=== PATIENT | female | born 1990 | race African-American/Black ===

== ENCOUNTER 2017-12-15 09:36 | Emergency (ER) | payer OTHER ==
--- NOTE | 2017-12-15 09:51 | ED ---
- HPI Summary HPI Summary: Patient is a 27 y/o F presenting to ED for a blood test. She states she took a urine test yesterday which returned positive and she wants to confirm results. LNMP was November 13. She notes that she has been nauseous and experiencing body aches. Patient states she is not nauseous in the room. Patient is A4. She states that present Sx are similar to when she was previously. She denies abdominal pain, vaginal bleeding or discharge, breast tenderness or swelling. PMHx of scoliosis, patient is not on a pre- vitamin and does not have OBGYN as she is new to [place]. Patient states she does not take any home medications. On triage, pain is denied. Nothing is noted to aggravate/alleviate Sx. Allergies are reviewed. - History of Current Complaint Chief Complaint: EDOBProblems Stated Complaint: REQUESTING PREG TEST Time Seen by Provider: 12/15/17 09:42 Hx Obtained From: Patient Onset/Duration: Started Days Ago - urine test yesterday, Still Present - request test, Resolved - nausea Timing: Constant, Lasting Days - urine test yesterday Current Severity: None - pain denied Pain Intensity: 0 Location of Pain: None Character: None Aggravating Factors: Nothing Alleviating Factors: Nothing Associated Signs and Symptoms: Positive: Nausea - not present in room, Other: - body aches, no breast swelling or tenderness. Negative: Vaginal Bleeding or Discharge - Allergies/Home Medications Allergies/Adverse Reactions: Allergies Allergy/AdvReac Type Severity Reaction Status Date / Time No Known Allergies Allergy Verified 12/15/17 09:56 PMH/Surg Hx/FS Hx/Imm Hx Musculoskeletal History: Reports: Hx Scoliosis Sensory History: Denies: Hx Legally Blind Opthamlomology History: Denies: Hx Legally Blind Infectious Disease History: No Infectious Disease History: Denies: Traveled Outside the [place] in Last 30 Days - Family History Known Family History: Negative: Blood Disorder - Social History Alcohol Use: None Substance Use Type: Reports: Marijuana Smoking Status (MU): Current Every Day Smoker Review of Systems Positive: Other - body aches Positive: Nausea - not present in the room . Negative: Abdominal Pain Positive: other - NEGATIVE: vaginal bleeding or discharge Positive: Other - NEGATIVE: breast tenderness, breast swelling All Other Systems Reviewed And Are Negative: Yes Physical Exam - Summary Physical Exam Summary: Appearance: Well appearing, no pain distress; early signs of Skin: warm, dry, reflects adequate perfusion Head/face: normal Eyes: EOMI, LONA ENT: mucous membranes moist Neck: supple, non-tender Respiratory: CTA, breath sounds present Cardiovascular: RRR, pulses symmetrical Abdomen: non-tender, soft Bowel Sounds: present Musculoskeletal: normal, strength/ROM intact Neuro: normal, sensory motor intact, A&Ox3 - Physical Exam Triage Information Reviewed: Yes Vital Signs On Initial Exam: Initial Vitals Temp Pulse Resp BP Pulse Ox 98.2 F 94 16 116/71 99 12/15/17 09:38 12/15/17 09:38 12/15/17 09:38 12/15/17 09:38 12/15/17 09:38 Vital Signs Reviewed: Yes Diagnostics - Vital Signs Vital Signs Temp Pulse Resp BP Pulse Ox 12/15/17 09:38 98.2 F 94 16 116/71 99 - Laboratory Lab Statement: Any lab studies that have been ordered have been reviewed, and results considered in the medical decision making process. Course/Dx - Course Course Of Treatment: +HCG by blood here. No pain or bleeding. F/U OBGYN - Diagnoses Provider Diagnoses: Discharge - Sign-Out/Discharge Documenting (check all that apply): Patient Departure - discharge - Discharge Plan Condition: Improved Disposition: HOME Prescriptions: Pnv No.95/Ferrous Fum/Folic AC [ Vitamin Tablet] 1 each PO DAILY #30 tablet Patient Education Materials: (ED) Referrals: [facility] [Provider Group] No Primary Care Phys,[facility] [Primary Care Provider] - Additional Instructions: Call today to schedule appointment for follow-up with [facility]. Do not smoke. Take a vitamin every day. Return if bleeding, uncontrolled pain, worse , new symptoms or other concerns. - Billing Disposition and Condition Condition: IMPROVED Disposition: Home - Attestation Statements Document Initiated by Scribe: Yes Documenting Scribe: Brennan Milner Provider For Whom Scribe is Documenting (Include Credential): Dimitris Alfaro MD Scribe Attestation: Brennan Bender , scribed for Dimitris Alfaro MD on 12/15/17 at 1155. Scribe Documentation Reviewed: Yes Provider Attestation: The documentation as recorded by the scribeBrennan accurately reflects the service I personally performed and the decisions made by me, Dimitris Alfaro MD
[2017-12-15 10:32] VITALS: BP 118/80
== END 2017-12-15 10:31 | disposition home or self-care (01) ==
LOC: ED 09:36
DX: Z32.01 Encounter for pregnancy test, result positive (principal); R11.0 Nausea; M79.10 Myalgia, unspecified site; F17.200 Nicotine dependence, unspecified, uncomplicated
CPT/HCPCS: 36415; 84702; 99282

== ENCOUNTER 2018-03-28 09:29 | Emergency (ER) | payer OTHER ==
--- NOTE | 2018-03-28 10:31 | ED ---
Abdominal Pain/Female - HPI Summary HPI Summary: Pt is a 27 y/o female who presents to the ED c/o abdominal pain. She began to have intermittent lower abdominal pain and lower back pain two days ago. Last night at 17:00 the pain became worse. Pt also c/o N/V and constipation. She denies any fever, vaginal fluid leakage, vaginal bleeding, diarrhea, or urinary symptoms. Pain is rated an 8/10 in severity. She denies any injury. LNMP was 11/13/17, and her due date is 08/20/18. Pt is currently about 19 weeks . She denies taking any OTC medications for her pain. Pt has an appointment with her TECHNICAL SALES DIRECTOR scheduled for tomorrow. She is accompanied by her partner. Pt denies any hx of appendectomy. - History of Current Complaint Chief Complaint: EDAbdPain Stated Complaint: 4 MONTHS PREG SHARP PAIN Time Seen by Provider: 03/28/18 10:29 Hx Obtained From: Patient Hx Last Menstrual Period: 11/13/17 Onset/Duration: Gradual Onset, Lasting Days - 2, Worse Since Timing: Intermittent Episode Lasting Severity Currently: Severe Pain Intensity: 8 Pain Scale Used: 0-10 Numeric Location: Other - Lower abdomen Radiates: Yes Radiates to: Back - lower back Aggravating Factor(s): Nothing Alleviating Factor(s): Nothing Associated Signs and Symptoms: Positive: Back Pain, Constipation, Nausea, Vomiting. Negative: Fever, Urinary Symptoms, Vaginal Bleeding, Vaginal Discharge Allergies/Adverse Reactions: Allergies Allergy/AdvReac Type Severity Reaction Status Date / Time No Known Allergies Allergy Verified 03/28/18 10:50 PMH/Surg Hx/FS Hx/Imm Hx Musculoskeletal History: Reports: Hx Scoliosis Sensory History: Denies: Hx Legally Blind Opthamlomology History: Denies: Hx Legally Blind Infectious Disease History: No Infectious Disease History: Denies: Traveled Outside the [place] in Last 30 Days - Family History Known Family History: Negative: Blood Disorder - Social History Alcohol Use: None Hx Substance Use: Yes Substance Use Type: Reports: Marijuana Hx Tobacco Use: No Smoking Status (MU): Never Smoked Tobacco Review of Systems Negative: Fever Positive: Abdominal Pain, Vomiting, Nausea, Other - constipation. Negative: Diarrhea Genitourinary: Negative Negative: other - vaginal bleeding All Other Systems Reviewed And Are Negative: Yes Physical Exam - Summary Physical Exam Summary: Appearance: Well appearing, no pain distress Skin: warm, dry, reflects adequate perfusion Head/face: normal Eyes: EOMI, LONA ENT: mucous membranes moist Neck: supple, non-tender Respiratory: CTA, breath sounds present Cardiovascular: RRR, pulses symmetrical Abdomen: soft, gravid, palpable about the level of the umbilicus, diffuse suprapubic, bilateral pelvic, and RLQ tenderness Bowel Sounds: present Musculoskeletal: strength/ROM intact, scoliosis of spine, bilateral lumbar muscular tenderness, normal gait without pain Neuro: normal, sensory motor intact, A&Ox3 Triage Information Reviewed: Yes Vital Signs On Initial Exam: Initial Vitals Temp Pulse Resp BP Pulse Ox 97.5 F 68 16 118/70 100 03/28/18 09:41 03/28/18 09:41 03/28/18 09:41 03/28/18 09:41 03/28/18 09:41 Vital Signs Reviewed: Yes Diagnostics - Vital Signs Vital Signs Temp Pulse Resp BP Pulse Ox 03/28/18 09:41 97.5 F 68 16 118/70 100 - Laboratory Result Diagrams: 03/28/18 11:09 03/28/18 11:09 Lab Statement: Any lab studies that have been ordered have been reviewed, and results considered in the medical decision making process. - Ultrasound No standard instances Ultrasound Interpretation Completed By: Radiologist Summary of Ultrasound Findings: US: The appendix is not visualized limiting assessment for appendicitis. No secondary inflammatory findings visualized at the RIGHT lower quadrant. Lucero intrauterine gestation in variable presentation with estimated gestational age based on this exam of 19 weeks 5 days. ED physician reviewed radiology report. Re-Evaluation - Re-Evaluation First Eval Re-Evaluation Time: 12:00 Change: Improved Comment: Pain has improved after muscle relaxer. Abdominal Pain Fem Course/Dx - Course Course Of Treatment: Nurse's notes reviewed. Patient is approximately 20 weeks with low abdominal discomfort and back pain. She has a history of scoliosis. Ultrasound indicates a well-appearing fetus without abruption. The patient walks and moves freely without any peritonitis. Her CRP and WBC are nonelevated. There is no UTI. She felt much better after muscle relaxation and was discharged in good condition. - Diagnoses Differential Diagnosis: Positive: Appendicitis, Bowel Obstruction, Constipation , Ovarian Cyst, , Renal Colic, Urinary Tract Infection Provider Diagnoses: Back pain, History of scoliosis, Abdominal pain during Discharge - Sign-Out/Discharge Documenting (check all that apply): Patient Departure - Discharge Patient Received Moderate/Deep Sedation with Procedure: No - Discharge Plan Condition: Stable Disposition: HOME Prescriptions: Cyclobenzaprine (NF) [Cyclobenzaprine 5 MG (NF)] 5 mg PO TID PRN #15 tab PRN Reason: muscular pain Patient Education Materials: Abdominal Pain in (ED), Back Pain (ED) Referrals: Beatrice Dias CNM [Primary Care Provider] - Additional Instructions: Tylenol as needed for discomfort. You may not take ibuprofen. Muscle relaxer as needed. Do not drive while taking. Call your TECHNICAL SALES DIRECTOR today to schedule prompt follow-up. Return with fever, increased pain, especially in the right lower quadrant of the abdomen, worse, new symptoms or other concerns as discussed. - Billing Disposition and Condition Condition: STABLE Disposition: Home - Attestation Statements Document Initiated by Sandrae: Yes Documenting Scribe: Tigist Medina Provider For Whom Sandrae is Documenting (Include Credential): Dimitris Alfaro MD Scribe Attestation: Tigist Bender, scribed for Dimitris Alfaro MD on 03/28/18 at 1351. Scribe Documentation Reviewed: Yes Provider Attestation: The documentation as recorded by the Tigist menon accurately reflects the service I personally performed and the decisions made by , Dimitris Alfaro MD Status of Scribe Document: Viewed
[2018-03-28] MEDS ORDERED: Acetaminophen TAB* 325 MG PO ONE (10:39)
[2018-03-28] MEDS ORDERED: Cyclobenzaprine TAB* 10 MG PO ONE (10:39)
[2018-03-28 11:14] LABS: ABS Basophils 0 10^3/ul (0-0.2); ABS Eosinophils 0 10^3/ul (0-0.6); ABS Lymphocytes 1.2 10^3/ul (1.0-4.8); ABS Monocytes 0.5 10^3/ul (0-0.8); ABS Nucleated RBC 0 10^3/ul; Eosinophil % 0.3 %; Hematocrit 35 % (35-47); Hemoglobin 11.9 g/dl (12.0-16.0); Lymphocyte % 25.8 %; Mean Corpuscular HGB Conc 34 g/dl (31-36); Mean Corpuscular Hemoglobin 31 pg (27-31); Mean Corpuscular Volume 93 fL (80-97); Mean Platelet Volume 10.3 fL (7.4-10.4); Nucleated Red Blood Cells % 0.1; Platelet Count 158 10^3/ul (150-450); Red Blood Count 3.81 10^6/ul (4.00-5.40); Red Cell Distribution Width 14 % (10.5-15); White Blood Count 4.8 10^3/ul (3.5-10.8)
[2018-03-28 11:35] LABS: Albumin 3.7 g/dL (3.2-5.2); Albumin/Globulin Ratio 1.3 (1-3); BUN/Creatinine Ratio 11.1 (8-20); C Reactive Protein 5.82 mg/L (<8.01); Calcium 8.3 mg/dL (8.6-10.3); EGFR African American 163.9 (>60); EGFR Non-African American 135.4 (>60); Globulin 2.8 g/dL (2-4); Potassium 3.6 mmol/L (3.5-5.0); Total Bilirubin 0.4 mg/dL (0.2-1.0); Total Protein 6.5 g/dL (6.4-8.9)
[2018-03-28 12:35] LABS: Urine Appearance Cloudy; Urine Bilirubin Negative (Negative); Urine Blood Negative (Negative); Urine Color Yellow; Urine Glucose Negative (Negative); Urine Ketones 1+ (Negative); Urine Nitrite Negative (Negative); Urine Protein Negative (Negative); Urine Specific Gravity 1.018 (1.010-1.030); Urine Urobilinogen Positive (Negative)
[2018-03-28 13:10] VITALS: BP 123/71
== END 2018-03-28 13:09 | disposition home or self-care (01) ==
LOC: ED 09:29
DX: O21.0 Mild hyperemesis gravidarum (principal); R10.30 Lower abdominal pain, unspecified; M54.5 Low back pain; M41.9 Scoliosis, unspecified; K59.00 Constipation, unspecified; Z3A.20 20 weeks gestation of pregnancy
CPT/HCPCS: 36415; 76815; 80053; 81003; 85025; 86140; 99282; A9270-GY

== ENCOUNTER 2018-04-28 17:15 | Emergency (ER) | payer OTHER ==
--- NOTE | 2018-04-28 17:35 | ED ---
Influenza-Like Illness - HPI Summary HPI Summary: This patient is a 28 year old F presenting to [facility] accompanied by friend with a chief complaint of chills that began yesterday. The patient rates the pain 10/ 10 in severity. Symptoms aggravated by nothing. Symptoms alleviated by nothing. Patient reports cough, myalgia, sore throat, nasal discharge, and vomiting. Patient states she is 6 months . - History of Current Complaint Chief Complaint: EDFluSymptoms Hx Obtained From: Patient Onset/Duration: Sudden Onset, Lasting Days, Still Present Severity: Severe Associated Signs & Symptoms: Myalgia, Cough, Sore Throat, Nasal Congestion, Vomiting - Allergy/Home Medications Allergies/Adverse Reactions: Allergies Allergy/AdvReac Type Severity Reaction Status Date / Time No Known Allergies Allergy Verified 03/28/18 10:50 PMH/Surg Hx/FS Hx/Imm Hx Previously Healthy: Yes Musculoskeletal History: Reports: Hx Scoliosis Sensory History: Denies: Hx Legally Blind Opthamlomology History: Denies: Hx Legally Blind Infectious Disease History: No Infectious Disease History: Denies: Traveled Outside the [place] in Last 30 Days - Family History Known Family History: Positive: Diabetes, Other - Lupus and CA. Negative: Blood Disorder - Social History Occupation: Unemployed Lives: With Family Alcohol Use: None Hx Substance Use: Yes Substance Use Type: Reports: Marijuana Hx Tobacco Use: No Smoking Status (MU): Never Smoked Tobacco Review of Systems Positive: Chills Positive: Sore Throat, Nasal Discharge Positive: Cough Positive: Vomiting Positive: Myalgia All Other Systems Reviewed And Are Negative: Yes Physical Exam - Summary Physical Exam Summary: Appearance: Well appearing, no pain distress Skin: warm, dry, reflects adequate perfusion Head/face: normal Eyes: EOMI, LONA ENT: mucous membranes moist. Inflamed nasal mucosa. Clear nasal discharge. Neck: supple, non-tender Respiratory: CTA, breath sounds present Cardiovascular: RRR, pulses symmetrical Abdomen: non-tender, soft. Fundus is palpable just below the umbilicus. Bowel Sounds: present Musculoskeletal: normal, strength/ROM intact Neuro: normal, sensory motor intact, A&Ox3 Triage Information Reviewed: Yes Vital Signs On Initial Exam: Initial Vitals Temp Pulse Resp BP Pulse Ox 98.5 F 99 20 103/67 100 04/28/18 17:17 04/28/18 17:17 04/28/18 17:17 04/28/18 17:17 04/28/18 17:17 Vital Signs Reviewed: Yes Diagnostics - Vital Signs Vital Signs Temp Pulse Resp BP Pulse Ox 04/28/18 17:17 98.5 F 99 20 103/67 100 - Laboratory Lab Statement: Any lab studies that have been ordered have been reviewed, and results considered in the medical decision making process. Flu Symptom Course/Dx - Course Course Of Treatment: Nurse's notes reviewed. Patient with abrupt onset of cough and cold symptoms testing positive for influenza A. She is well within the treatment window for Tamiflu which is prescribed. category C. No dyspnea or hypoxia. Tylenol given here. Bedside ultrasound of the fetus shows an active fetus with heart tones present. Measures appropriately at 24 weeks and 2 days by BPD. - Diagnoses Differential Diagnosis/HQI/PQRI: Positive: Influenza, Pneumonia, Upper Respiratory Infection Provider Diagnoses: Second trimester , Influenza A Discharge - Sign-Out/Discharge Documenting (check all that apply): Patient Departure - Discharge home Patient Received Moderate/Deep Sedation with Procedure: No - Discharge Plan Condition: Improved Disposition: HOME Prescriptions: guaiFENesin [Mucinex] 600 mg PO BID #20 tab.er.12h Oseltamivir CAP* [Tamiflu CAP*] 75 mg PO BID #10 cap Patient Education Materials: Influenza (ED) Forms: *Work Release Referrals: Beatrice Dias CNM [Primary Care Provider] - Additional Instructions: Return with difficulty breathing, high fevers, worse, new symptoms or other concerns. Drink plenty of fluids. Vitamin C may help. Humidifier while sleeping. All medications are safe for . Call on Monday to follow-up with her MANAGER INTEGRATED and your family doctor. Tylenol can be taken for body aches or fever. Do not take ibuprofen. - Billing Disposition and Condition Condition: IMPROVED Disposition: Home - Attestation Statements Document Initiated by Scribe: Yes Documenting Scribe: Lida Hart Provider For Whom Agustin is Documenting (Include Credential): Dr. Dimitris Alfaro MD Scribe Attestation: Ldia Bender, scribed for Dr. Dimitris Alfaro MD on 04/28/18 at 1806. Scribe Documentation Reviewed: Yes Provider Attestation: The documentation as recorded by the Lida menon accurately reflects the service I personally performed and the decisions made by me, Dr. Dimitris Alfaro MD Status of Scribe Document: Viewed
[2018-04-28 17:52] LABS: Influenza A Molecular POSITIVE (Negative)
[2018-04-28] MEDS ORDERED: Acetaminophen TAB* 325 MG PO ONE (18:02)
[2018-04-28 18:14] LABS: Urine Appearance Cloudy; Urine Bilirubin Negative (Negative); Urine Blood Negative (Negative); Urine Color Yellow; Urine Glucose Negative (Negative); Urine Ketones 2+ (Negative); Urine Nitrite Negative (Negative); Urine Protein Negative (Negative); Urine Specific Gravity 1.016 (1.010-1.030); Urine Urobilinogen Positive (Negative)
[2018-04-28 18:30] VITALS: BP 132/71
== END 2018-04-28 18:30 | disposition home or self-care (01) ==
LOC: ED 17:15
DX: O26.892 Other specified pregnancy related conditions, second trimester (principal); J10.1 Influenza due to other identified influenza virus with other respiratory manifestations; Z3A.24 24 weeks gestation of pregnancy
CPT/HCPCS: 81003; 99283; A9270-GY

== ENCOUNTER 2018-08-14 05:13 | Inpatient (IN) | payer OTHER ==
[2018-08-14] MEDS ORDERED: Lactated Ringers 1000 ML Bag* 1,000 ML IV ONE ×2 (05:44→08:48)
[2018-08-14] MEDS ORDERED: Buffered Lidocaine 1% SYRIN* 1 ML/SYRINGE INTRADERM ONE (05:44)
[2018-08-14] MEDS ORDERED: Lactated Ringers 1000 ML Bag* 1,000 ML IV SCH ×3 (06:00→14:00)
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
--- NOTE | 2018-08-14 06:23 | PN ---
Progress Note - Progress Note Date of Service: 08/14/18 Note: Pt requests pain relief. Discussed options with her including non- pharmacological methods such as hydrotherapy, position changes, IV/ IM medications, nitrous oxide, and epidural. Pt reports hx epidurals with previous births, second one "didn't work," would prefer to avoid for now. Would like to try nitrous oxide. Discussed risks, benefits, use of mask. FHR Category I. Partner at bedside.
[2018-08-14 08:04] LABS: Hematocrit 36 % (35-47); Mean Corpuscular HGB Conc 36 g/dL (31-36); Mean Corpuscular Hemoglobin 33 pg (27-31); Mean Corpuscular Volume 91 fL (80-97); Red Blood Count 3.97 10^6 /uL (3.70-4.87); Red Cell Distribution Width 14 % (10-15); White Blood Count 9.9 10^3/uL (3.5-10.8)
--- NOTE | 2018-08-14 08:04 | PN ---
Progress Note - Progress Note Date of Service: 08/14/18 SOAP: Subjective: Pt more uncomfortable. Nitrous was working well for a bit, but is now more uncomfortable and requests epidural. Objective: FHR baseline 120, moderate variability, + accels, occasional early decels UCs Q 2-3 minutes, moderate strength Cervical exam deferred Assessment: Pt appears to be progressing in active labor. No evidence of acidemia. Membranes intact. Plan: Epidural for pain relief. Anticipate .
[2018-08-14 08:05] LABS: ABS Lymphocytes 2.2 10^3/ul (1.0-4.8); ABS Monocytes 1.1 10^3/ul (0-0.8); ABS Neutrophils 6.5 10^3/ul (1.5-7.7); Eosinophil % 0.3 %; Lymphocyte % 22.1 %
[2018-08-14] MEDS ORDERED: Bupivacaine 0.25% SDV PF* 10 ML VIAL INJ ONE (08:14)
[2018-08-14] MEDS ORDERED: OBEPIDURAL* 250 ML EPIDURAL ONE (08:15)
[2018-08-14 08:28] LABS: Mean Platelet Volume 12.3 fL (7.4-10.4); Platelet Count 138 10^3/uL (150-450)
[2018-08-14] MEDS ORDERED: Lidocaine 1% w EPI 1:200,000* 30 ML VIAL ONE (08:31)
[2018-08-14 08:35] LABS: Urine Benzodiazepine Screen None Detected (None Detect); Urine Opiates Screen None Detected (None Detect)
[2018-08-14] MEDS ORDERED: Phenylephrine 40 MCG/ML SYRINGE IV PUSH PRN ×2 (08:48)
[2018-08-14] MEDS ORDERED: Sodium Citrate/Citric Acid* 15 ML UDC PO PRN (08:48)
[2018-08-14] MEDS ORDERED: Famotidine TAB* 20 MG PO PRN (08:48)
[2018-08-14] MEDS ORDERED: EPHEDrine (Pressors)* 50 MG/ML VIAL IV PUSH PRN ×2 (08:48)
[2018-08-14] MEDS ORDERED: OBEPIDURAL* 250 ML EPIDURAL SCH (09:00)
--- NOTE | 2018-08-14 11:05 | PN ---
Progress Note - Progress Note Date of Service: 08/14/18 Note: S: Pt resting comfortably after epidural placement O: BP 115/67 HR 69 FHT 120bpm. Minimal to moderate variability. +Accels. Occ early type decels UCs q 2-4 VE: 6cm/100%/vtx 0, BBOW A: IUP at 39-1/7 in labor Cat II FHT, doubt metabolic acidemia P: Close monitoring of maternal/ status. Anticipate normal progression in labor.
[2018-08-14] MEDS ORDERED: Acetaminophen TAB* 325 MG PO PRN (13:23)
[2018-08-14] MEDS ORDERED: Dibucaine 1% 28.35 GM TUBE PR PRN (13:23)
[2018-08-14] MEDS ORDERED: Glycerin ADULT SUPP PR PRN (13:23)
[2018-08-14] MEDS ORDERED: Witch Hazel PAD* JAR TOPICAL PRN (13:23)
--- NOTE | 2018-08-14 13:34 | PROCNOTE ---
[facility] OB: Delivery Note - Delivery A Date of : 08/14/18 Time of : 13:04 [place] Sex: Male - "Juanito" Score 1 Minute: 9 Score 5 Minutes: 9 Gestational Age in Weeks and Days at Delivery: 39 Weeks and 1 Days Delivery Method: Spontaneous Vaginal Labor: Spontaneous Did Patient attempt ?: N/A, No Previous Amniotic Fluid: Clear Estimated Blood Loss: 400 Anesthesia/Analgesia: CEI for Labor - placed by Dr. Velasquez, Nitrous-Labor Delivered By: [place]o [place] - Nursery Level of Nursery: Regular/Bedside - Perineum Perineal Injury: None/Intact Perineal Repair: None - Additional Delivery Notes Additional Delivery Notes: Patient admitted at term in labor. Received epidural per preference with excellent relief. Expected progression to complete. Amniotomy to clear fluid at anterior lip followed by spontaneous pushing effort. Pushed x 11 min. liveborn male. Slow, controlled delivery of head. Direct OA. Transverse shoulders delivered in [place] with stron maternal push. [place] vigorous with spontaneous cry. HR>110bpm. Delivered to maternal abdomen. Cord clamped x 2 and cut by FOB when puslations ceased. Spontaneous delivery intact placenta. Membranes complete. Fundus slow to firm to massage, brisk bleeding noted. IV pitocin initiated. Fundus firmed to massage and remained firm. Perineum intact. No repair needed as above. EBL 400mL. At time of note mother and in stable condition. Planning to both breast and bottle feed per preference.
[2018-08-14] MEDS ORDERED: Oxytocin in LR* 20 UNITS/1,000 ML BAG IVPB SCH (14:00)
[2018-08-14] MEDS ORDERED: OXYTOCIN* 10 UNITS/ML 1 ML VIAL ONE (14:09)
[2018-08-14] MEDS: Ibuprofen TAB* 600 MG PO PRN ×2 (14:10→20:16)
[2018-08-14] MEDS: Docusate CAP* 100 MG PO SCH ×2 (15:32→21:47)
[2018-08-14] MEDS ORDERED: Simethicone TAB* 80 MG TAB.CHEW PO SCH (17:30)
[2018-08-15] MEDS: Ibuprofen TAB* 600 MG PO PRN ×3 (02:17→14:33)
[2018-08-15 06:18] LABS: ABS Lymphocytes 2.2 10^3/ul (1.0-4.8); ABS Monocytes 1.2 10^3/ul (0-0.8); ABS Neutrophils 7.7 10^3/ul (1.5-7.7); Eosinophil % 0.1 %; Hematocrit 32 % (35-47); Hemoglobin 10.9 g/dL (12.0-16.0); Lymphocyte % 19.9 %; Mean Corpuscular HGB Conc 34 g/dL (31-36); Mean Corpuscular Hemoglobin 31 pg (27-31); Mean Corpuscular Volume 92 fL (80-97); Mean Platelet Volume 11.3 fL (7.4-10.4); Platelet Count 104 10^3/uL (150-450); Red Blood Count 3.47 10^6 /uL (3.70-4.87); Red Cell Distribution Width 14 % (10-15); White Blood Count 11.2 10^3/uL (3.5-10.8)
[2018-08-15] MEDS: Docusate CAP* 100 MG PO SCH ×3 (08:47→21:18)
[2018-08-15] MEDS ORDERED: Ferrous Gluconate TAB* 324 MG TAB PO SCH (09:00)
[2018-08-16] MEDS: Docusate CAP* 100 MG PO SCH (07:52)
[2018-08-16] MEDS: Ibuprofen TAB* 600 MG PO PRN (07:53)
[2018-08-16 08:01] VITALS: BP 113/71
== END 2018-08-16 10:10 | disposition home or self-care (01) | DRG 560 ==
LOC: MCHOBOUT 05:13 → MCHOB 05:43
PROVIDERS: ADMIT Midwife; ATTEND Midwife
PROC: 10E0XZZ Delivery of Products of Conception, External Approach (ICD-10-PCS; principal; 2018-08-14)
PROC: 4A1HXCZ Monitoring of Products of Conception, Cardiac Rate, External Approach (ICD-10-PCS; 2018-08-14)
PROC: 10907ZC Drainage of Amniotic Fluid, Therapeutic from Products of Conception, Via Natural or Artificial Opening (ICD-10-PCS; 2018-08-14)
DX: O76 Abnormality in fetal heart rate and rhythm complicating labor and delivery (principal); Z37.0 Single live birth; Z3A.39 39 weeks gestation of pregnancy; Z91.040 Latex allergy status
CPT/HCPCS: 36415; 80307; 85025; 86850; 86900; 86901; A9270-GY; J2001; J2590; J3490

== ENCOUNTER 2019-01-15 15:39 | Emergency (ER) | payer OTHER ==
--- NOTE | 2019-01-15 17:41 | UC ---
Complaint Female HPI - HPI Summary HPI Summary: 28 yo [id number] with one week hx of vaginal odor without itching. She has a hx of bacterial vaginosis with frequent recurrences, and her symptoms are most consistent with that. She has onset of low back pain x 2 days without urinary frequency, dysuria or gross hematuria. LMP late November, positive home test yesterday. She had tx of gonorrhea 8 years but no other STI's. Her partner has herpes, but she has not had an outbreak, and reports being treated with antiviral around the time of her last delivery. Unplanned , has not been using contraception, and is uncertain of plan for at this point in time. - History Of Current Complaint Chief Complaint: [facility] Stated Complaint: PERSONAL ISSUE Time Seen by Provider: 01/15/19 17:34 Hx Obtained From: Patient Hx Last Menstrual Period: end of november Onset/Duration: Gradual Onset Timing: Constant Pain Intensity: 8 Character: Cramping Aggravating Factor(s): Movement - worsens back pain Alleviating Factor(s): Nothing Associated Signs And Symptoms: Positive: Back Pain, Vaginal Discharge - Risk Factors Ovarian Torsion Risk Factor: Reproductive Age - Allergies/Home Medications Allergies/Adverse Reactions: Allergies Allergy/AdvReac Type Severity Reaction Status Date / Time Latex, Natural Rubber Allergy Mild Itching Verified 01/15/19 16:04 PMH/Surg Hx/FS Hx/Imm Hx - Additional Past Medical History Additional PMH: Scoliosis Previously Healthy: Yes - Surgical History Surgical History: None - Family History Known Family History: Positive: Diabetes, Other - Lupus and CA. Negative: Blood Disorder - Social History Occupation: Employed Full-time Lives: With Family Alcohol Use: None Substance Use Type: Marijuana Substance Use Comment - Amount & Last Used: states not anymore but before 2x/day per pt - positive test Smoking Status (MU): Never Smoked Tobacco - Immunization History Most Recent Influenza Vaccination: N/A Most Recent Pneumonia Vaccination: N/A Review of Systems All Other Systems Reviewed And Are Negative: Yes Constitutional: Positive: Negative Skin: Positive: Negative Eyes: Positive: Negative ENT: Positive: Sore Throat - resolving--had URI last week., Nasal Discharge Respiratory: Positive: Negative Cardiovascular: Positive: Negative Gastrointestinal: Positive: Negative Genitourinary: Positive: Vaginal/Penile Discharge. Negative: Dysuria, Frequency , Urgency Motor: Positive: Other - chronic low back pain related to scoliosis Neurovascular: Positive: Negative Musculoskeletal: Positive: Arthralgia Neurological: Positive: Negative Psychological: Positive: Negative Is Patient Immunocompromised?: No Physical Exam Triage Information Reviewed: Yes Appearance: Well-Appearing, Pain Distress - mild Vital Signs: Initial Vital Signs Temp 97.6 F 01/15/19 16:00 Pulse 72 01/15/19 16:00 Resp 18 01/15/19 16:00 BP 132/61 01/15/19 16:00 Pulse Ox 100 01/15/19 16:00 Eyes: Positive: Conjunctiva Clear ENT: Positive: Pharynx normal, TMs normal Neck: Positive: Supple, Nontender, Enlarged Nodes @ - posterior cervical nodes, small, mobile but tender R>L Respiratory: Positive: Lungs clear, Normal breath sounds Cardiovascular: Positive: RRR, No Murmur Abdomen Description: Positive: Nontender, No Organomegaly, Soft Pelvic Exam: Positive: External Exam Normal, Discharge - moderate white discharge, thin, no odor Musculoskeletal Exam: Normal Neurological Exam: Normal Psychological Exam: Normal Skin Exam: Normal Diagnostics - Laboratory Lab Results: Normal UA, Urine positive Complaint Female Dx - Course Course Of Treatment: Current recommendation for treatment of vaginosis in is clindamycin for ne week. Cultures have been sent, and you will be called if a change in treatment is needed based on the results. - Differential Dx/Diagnosis Differential Diagnosis/HQI/PQRI: Pelvic Inflammatory Disease, Sexually Transmitted Disease, Urinary Tract Infection, Other - bacterial vaginosis Provider Diagnosis: Bacterial vaginosis in Discharge ED - Sign-Out/Discharge Documenting (check all that apply): Patient Departure All imaging exams completed and their final reports reviewed: No Studies - Discharge Plan Condition: Stable Disposition: HOME Prescriptions: Clindamycin Cap(NF) [Clindamycin Cap 300 mg Cap(NF)] 300 mg PO BID #14 cap Referrals: No Primary Care Phys,NOPCP [Primary Care Provider] - Additional Instructions: Recommended treatment for bacterial vaginosis in is clindamycin 300mg twice daily for one week. A prescription has been sent. This can cause loose stools. Please shedule a follow up visit with OBGYN for evaluation. You will be called if a change of treatment is needed based on the results of today's testing. - Billing Disposition and Condition Condition: STABLE Disposition: Home
[2019-01-15 18:44] VITALS: BP 128/65
[2019-01-17 13:31] LABS: Chlamydia trachomatis NAA Negative (Negative); Neisseria gonorrhoeae (GC) NAA Negative (Negative)
== END 2019-01-15 18:45 | disposition home or self-care (01) ==
LOC: UCEAST 15:39
DX: O23.599 Infection of other part of genital tract in pregnancy, unspecified trimester (principal); O99.519 Diseases of the respiratory system complicating pregnancy, unspecified trimester; J02.9 Acute pharyngitis, unspecified; B96.89 Other specified bacterial agents as the cause of diseases classified elsewhere; Z91.040 Latex allergy status
CPT/HCPCS: 81003; 84702; 87480; 87491; 87510; 87591; 87661; 99212; G0463

== ENCOUNTER 2019-09-03 05:49 | Inpatient (IN) ==
[2019-09-03] MEDS ORDERED: Lactated Ringers 1000 ml BAG 1,000 ML IV ONE (06:21)
[2019-09-03] MEDS ORDERED: Lactated Ringers 1000 ml BAG 1,000 ML IV SCH ×3 (07:00→22:00)
[2019-09-03 07:59] LABS: ABS Eosinophils 0.1 10^3/ul (0-0.6); ABS Lymphocytes 2.9 10^3/ul (1.0-4.8); ABS Monocytes 0.9 10^3/ul (0-0.8); ABS Neutrophils 5.4 10^3/ul (1.5-7.7); Eosinophil % 0.6 %; Hematocrit 34 % (35-47); Hemoglobin 11.6 g/dL (12.0-16.0); Lymphocyte % 31.1 %; Mean Corpuscular HGB Conc 35 g/dL (31-36); Mean Corpuscular Hemoglobin 32 pg (27-31); Mean Corpuscular Volume 92 fL (80-97); Mean Platelet Volume 11.8 fL (7.4-10.4); Nucleated Red Blood Cells % 0.1; Platelet Count 137 10^3/uL (150-450); Red Blood Count 3.68 10^6 /uL (3.70-4.87); Red Cell Distribution Width 14 % (10-15); White Blood Count 9.2 10^3/uL (3.5-10.8)
[2019-09-03] MEDS ORDERED: Promethazine INJ(RESTRICTED) 25 MG/ML 1 ml VIAL IV ONE (08:47)
[2019-09-03] MEDS ORDERED: Morphine 10 MG/ML VIAL (1 ml) IV ONE (08:59)
[2019-09-03 09:10] LABS: Urine Benzodiazepine Screen None Detected (None Detect); Urine Cannabinoids Screen Presumptive Positive (None Detect); Urine Opiates Screen None Detected (None Detect)
[2019-09-03] MEDS ORDERED: OBEPIDURAL 250 ML EPIDURAL ONE (17:54)
[2019-09-03] MEDS ORDERED: Bupivacaine 0.25% SDV PF 10 ML VIAL INJ ONE (18:07)
[2019-09-03] MEDS ORDERED: fentaNYL 100 mcg/2 ml 50 MCG/ML VIAL ONE (18:12)
[2019-09-03] MEDS ORDERED: Glycerin ADULT 2.4 gm SUPP PR PRN (21:05)
[2019-09-03] MEDS ORDERED: Witch Hazel PAD JAR TOPICAL PRN (21:05)
[2019-09-03] MEDS ORDERED: Dibucaine 1% OINT 28.35 GM TUBE PR PRN (21:05)
[2019-09-04 07:06] LABS: ABS Basophils 0.1 10^3/ul (0-0.2); ABS Monocytes 1.2 10^3/ul (0-0.8); ABS Neutrophils 6.9 10^3/ul (1.5-7.7); Eosinophil % 0.2 %; Hematocrit 32 % (35-47); Hemoglobin 10.9 g/dL (12.0-16.0); Lymphocyte % 26.6 %; Mean Corpuscular HGB Conc 34 g/dL (31-36); Mean Corpuscular Hemoglobin 32 pg (27-31); Mean Corpuscular Volume 92 fL (80-97); Mean Platelet Volume 11.8 fL (7.4-10.4); Nucleated Red Blood Cells % 0.1; Platelet Count 118 10^3/uL (150-450); Red Blood Count 3.46 10^6 /uL (3.70-4.87); Red Cell Distribution Width 14 % (10-15); White Blood Count 11.2 10^3/uL (3.5-10.8)
[2019-09-04] MEDS ORDERED: medroxyPROGESTERone ACETATE 150 MG/ML VIAL IM ONE (16:20)
[2019-09-04 20:27] VITALS: BP 126/76
== END 2019-09-04 21:20 | disposition home or self-care (01) ==
LOC: MCHOBOUT 05:49 → MCHOB 08:15
PROVIDERS: ADMIT Midwife; ATTEND Midwife